=== PATIENT | male | born 1985 | race Two or more races ===

== ENCOUNTER 2017-04-15 18:53 | Emergency (ER) | payer MEDICAID ==
[~2017-04-15] VITALS: Ht 167.6 cm; Wt 90.7 kg
[2017-04-15 19:30] VITALS: BP 118/69
--- NOTE | 2017-04-15 20:29 | Emergency Room Report ---
History of Present Illness General Chief Complaint: Upper Respiratory Illness Source: Patient Present Illness HPI 31 yo male patient presents to ER complaining of coughing up blood x1 week. Patient reports cough for the past year. Patient denies hx of asthma. Patient reports night sweats during this time; denies weight loss. Patient reports hx of smoking cigarettes and marijuana. Patient reports history of schizophrenia and bipolar disease; states he is currently taking has medications. Patient denies fever, chest pain, SOB, abdominal pain, US. Patient is being seen in ER with brother who presents with similar symptoms and past medical history. Patient reports currently staying in a "home with other people." Denies history of pulmonary disease. Allergies: Coded Allergies: No Known Allergies (Unverified , 04/15/17) Patient History Past Medical History: see triage record Social History: Reports: smoking, alcohol use, drug use Reviewed Nursing Documentation: PMH: Agreed, PSxH: Agreed Nursing Documentation-PMH Past Medical History: No History, Except For Hx Diabetes: Yes Review of Systems All Other Systems: negative except mentioned in HPI Physical Exam Vital Signs Date Time Temp Pulse Resp B/P (MAP) Pulse Ox O2 Delivery O2 Flow Rate FiO2 04/15/17 19:01 98.0 108 16 109/69 99 Room Air 98.1 Sp02 EP Interpretation: reviewed, normal General Appearance: well appearing, no apparent distress, alert, GCS 15, non- toxic, other - unkept appearance, tatterd clothes, dirt under fingernails Head: normocephalic, atraumatic Eyes: bilateral eye normal inspection, bilateral eye PERRL, bilateral eye EOMI ENT: hearing grossly normal, normal pharynx, normal voice, TMs + canals normal , uvula midline, moist mucus membranes, other - no blood in oropharynx, no open wounds, no draining Neck: normal inspection, full range of motion, no bony tend Respiratory: normal inspection, lungs clear, normal breath sounds, no rhonchi, no respiratory distress, no retraction, no accessory muscle use, no wheezing, speaking full sentences Cardiovascular #1: regular rate, rhythm, no edema Musculoskeletal: back normal, digits/nails normal, gait/station normal, normal range of motion, no calf tenderness, Kalyan's Sign negative Neurologic: alert, oriented x3, responsive, motor strength/tone normal, normal gait Psychiatric: mood/affect normal Skin: normal color, no rash, warm/dry Lymphatic: no adenopathy Medical Decision Making PA Attestation Dr. Savage is my supervising Physician whom patient management has been discussed with. Diagnostic Impression: Primary Impression: Cough ER Course Patient presents to ER complaining of cough and blood in sputum. Patient was observed smoking marijuana outside of hospital prior to entering into hospital. Patient appears to be homeless. Patient given N95 mask over concern of TB. Vitals, Patient is afebrile. Patient pulse 104, slight elevation. Presents with brother for similar symptoms. Ddx considered include but are not limited to TB, bronchitis, pneumonia, tobacco use. Negative Kalyan sign. Low suspicion for PE per Well's criteria. Ordered chest x-ray. PE is benign, no breathing difficulty, no wheezes, rhonchi or rales, no blood noted in oropharynx. Patient not observed coughing or coughing up blood while in ER. ER COURSE: Patient resting comfortably in bed, in no acute distress, nontoxic appearing, able to answer questions without difficulty. CXR negative for acute disease. Discuss results with patient. Rx provided for Tylenol. Patient vitals WNL prior to discharge. Patient informed smoking may be cause of symptoms; encouraged to discontinue smoking habit. Results discussed with Dr. Savage; agrees with treatment, patient stable for discharge. At this time pt. is stable for d/c to home. Will provide printed patient care instructions, and any necessary prescriptions. Patient instructed to follow with primary care provider for further treatment and referral as needed to cardiology. Patient instructed to followup with mental health provider for further treatment. Care plan and follow up instructions have been discussed with the patient prior to discharge. Patient reports understanding and agreement to treatment plan. Patient questions asked and answered. ER precautions given, patient instructed to return to ER immediately for any new or worsening of symptoms. Chest X-Ray Diagnostic Results Chest X-Ray Diagnostic Results : Chest X-Ray Ordered: Yes # of Views/Limited/Complete: 1 View Indication: Chest Pain EP Interpretation: Yes AISLINN Xray: Interpretation reviewed, by supervising MD, and agrees with findings. Interpretation: no consolidation, no effusion, no pneumothorax Impression: No acute disease AISLINN ScribKen Molina PA-C Last Vital Signs Date Time Temp Pulse Resp B/P (MAP) Pulse Ox O2 Delivery O2 Flow Rate FiO2 2/17/18 19:01 98.0 108 16 109/69 99 Room Air 98.1 Disposition: HOME, SELF-CARE Condition: Stable Scripts Acetaminophen* (TYLENOL EXTRA STRENGTH*) 500 Mg Tablet 500 MG ORAL Q8H Y for Prn Headache/Temp > 101, #10 TAB 0 Refills Prov: Javier Molina 04/15/17 Patient Instructions: Cough, Adult, [id number] Additional Instructions: Followup with primary care provider in 2-3 days for further treatment and referral. followup with mental health professional for treatment. Take medications as directed. Patient questions asked and answered. ER precautions given, patient instructed to return to ER immediately for any new or worsening of symptoms. Javier Molina Apr 15, 2017 20:29
[2017-04-15] MEDS ORDERED: TYLENOL EXTRA500 MG ORAL (20:57)
[2017-04-15 21:00] VITALS: BP 118/69
--- NOTE | 2017-04-16 11:25 | Diagnostic Imaging Report ---
Indication: Chest pain Comparison: None A single view chest radiograph was obtained. Findings: Cardiomediastinal appearance is within normal limits for age. Pulmonary vascularity is appropriate. The diaphragmatic contour is smooth and costophrenic angles are sharp. No pleural effusions are identified. The bones are unremarkable. Impression: No acute findings
== END 2017-04-15 21:00 | disposition home or self-care (01) ==
LOC: EMR 19:35 → EDBD 19:35 → EMR 21:00
DX: R05 Cough (principal); F12.90 Cannabis use, unspecified, uncomplicated; Z87.891 Personal history of nicotine dependence; E11.9 Type 2 diabetes mellitus without complications; F31.9 Bipolar disorder, unspecified; F20.9 Schizophrenia, unspecified; Z59.0 Homelessness
CPT/HCPCS: 71045; 99283